=== PATIENT | male | born 1985 | race Caucasian/White ===

== ENCOUNTER 2017-03-05 20:22 | Emergency (ER) | payer SELFPAY ==
[~2017-03-05 20:22] MED LIST: IBUP-232 PO; Z.0.NO CURRENT MEDS
[2017-03-05 20:26] VITALS: BP 106/69; PULSE 58; RESP 20; TEMP 98.6; O2SAT 98
--- NOTE | 2017-03-05 20:56 | PD ---
HPI Chief Complaint: Bite or Sting Time Seen by Provider: 20:40 Travel History International Travel<30 days: No Contact w/Intl Traveler<30days: No Traveled to known affect area: No History of Present Illness HPI 31-year-old male presents to the emergency room for evaluation of a cat bite and multiple cat scratches to his right hand that occurred just prior to arrival. Patient states his cat was panicking and attacked him. He believes the worst wound which is very deep and overlying a joint was from cat bite. Patient tells the wounds and alcohol prior to coming to the emergency room. Last tetanus was less than 5 years ago. He is up-to-date on rabies and his temper. [facility] Past Surgical History Tonsillectomy: Yes Social History Alcohol Use: Yes (HOLIDAYS) Tobacco Use: No Substance Use: No Allergies-Medications (Allergen,Severity, Reaction): Coded Allergies: No Known Allergies (Unverified , 03/05/17) Reported Meds & Prescriptions Reported Meds & Active Scripts Active No Active Prescriptions or Reported Medications Review of Systems Except as stated in HPI: all other systems reviewed are Neg Physical Exam Narrative GENERAL: Well-nourished, well-developed male in no acute distress. Afebrile. Ambulatory. SKIN: Focused skin assessment warm/dry. Multiple superficial abrasions to the right hand and wrist. There is a 1 cm, deep laceration on the right second finger over the PIP joint on the dorsal aspect. HEAD: Normocephalic. EYES: No scleral icterus. No injection or drainage. NECK: Supple, trachea midline. No JVD or lymphadenopathy. CARDIOVASCULAR: Regular rate and rhythm without murmurs, gallops, or rubs. RESPIRATORY: Breath sounds equal bilaterally. No accessory muscle use. EXTREMITY: Full range of motion of the right hand. Less than 2 second capillary refill distally in all fingers. No significant edema noted. Data Data Last Documented VS Vital Signs Date Time Temp Pulse Resp B/P (MAP) Pulse Ox O2 Delivery O2 Flow Rate FiO2 03/05/17 20:26 98.6 58 20 106/69 (81) 98 MDM Medical Decision Making Medical Screen Exam Complete: Yes Emergency Medical Condition: Yes Medical Record Reviewed: Yes Differential Diagnosis Bite, laceration, contusion, abrasion, foreign body Narrative Course 31-year-old male presents to the emergency room for evaluation of cat bite to his right hand that occurred just prior to arrival. Patient was bit by his own cat that is up-to-date on shots. His tetanus is up-to-date. Physical exam reveals a deep 1 cm laceration to the right second digit over the dorsal, DIP joint. No obvious foreign body. No evidence of infection this time. Patient has full range of motion and less than 2 second capillary refill distally with distal 2 point a prescription and intact. There are several superficial abrasions to the right hand from scratches. Wound was thoroughly irrigated and approximated with Steri-Strips. Laceration will not be repaired because of risk of infection. Patient discharged with prescription for Augmentin and told to follow-up with a primary care physician and return for worsening symptoms. He understands and agrees to plan. Diagnosis Primary Impression: Cat bite of right hand Qualified Codes: S61.451A - Open bite of right hand, initial encounter; W55.01XA - Bitten by cat, initial encounter Referrals: Primary Care Physician Additional Instructions: Keep wounds clean and dry. Apply triple antibiotic ointment daily. Augmentin as directed, until gone. Take ibuprofen with food as directed, as needed for pain. Apply ice to the affected area for 20 minutes at a time, as needed for pain and swelling. Follow-up with a primary care physician. Return to the emergency room for worsening symptoms. Scripts No Active Prescriptions or Reported Meds Disposition: 01 DISCHARGE HOME Condition: Stable Charo Guajardo Mar 05, 2017 20:56
[2017-03-05] MEDS ORDERED: AUGM875T3 PO (20:57)
== END 2017-03-05 21:15 | disposition home or self-care (01) ==
LOC: PHEFT 20:22
DX: S61.451A Open bite of right hand, initial encounter (principal); S60.511A Abrasion of right hand, initial encounter; W55.01XA Bitten by cat, initial encounter; W55.03XA Scratched by cat, initial encounter
CPT/HCPCS: 99283